=== PATIENT | male | born 1960 | race Caucasian/White ===

== ENCOUNTER 2020-06-10 17:13 | Emergency (ER) | payer BC ==
[~2020-06-10] VITALS: Ht 160 cm; Wt 68.0 kg
[2020-06-10 17:51] VITALS: BP 154/73
[2020-06-10] MEDS ORDERED: HYDROcodone/APAP 5/325MG 1 TAB TABLET PO ONE (18:15)
--- NOTE | 2020-06-10 18:26 | PHYS DOC ---
Past Medical History Past Medical History: Anxiety (ISA CORDERO APRN) Past Surgical History: Cholecystectomy (ISA CORDERO APRN) Smoking Status: Never Smoker Alcohol Use: Occasionally (ISA CORDERO APRN) General Adult EDM: Chief Complaint: RIB PAIN HPI: HPI: Patient is a 59 year old male who presents with was working on a car when he slipped and he fell hitting his Right ribs on the alexys. He rates his throbbing, aching pain 8 out of 10. Patient does have a circular area where he hit the alexys on his lateral ribs. Patient states he has shortness of breath due to pain. He states when he takes a deep breath or with movement it hurts worse. There is no crepitus or deformity or bruising over the area. There is tenderness. Patient denies taking any medication prior to coming. He denies hi tting his head, headache, dizziness, abdominal pain, nausea, vomiting, diarrhea, chest pain, blood thinners, back pain, neck pain, vision changes. (ISA CORDERO HALL DIRECTOR) Review of Systems: Review of Systems: Constitutional: Denies fever or chills. [] Eyes: Denies change in visual acuity. [] HENT: Denies nasal congestion or sore throat. [] Respiratory: Denies cough. +shortness of breath. [] Cardiovascular: Denies chest pain or edema. [] GI: Denies abdominal pain, nausea, vomiting, bloody stools or diarrhea. [] : Denies dysuria. [] Musculoskeletal: Denies back pain or joint pain. +Left ribs. [] Integument: Denies rash. +[place] around circular area to the left lateral ribs where he landed on the cardiac. [] Neurologic: Denies headache, focal weakness or sensory changes. [] Endocrine: Denies polyuria or polydipsia. [] Lymphatic: Denies swollen glands. [] Psychiatric: Denies depression or anxiety. [] (ISA CORDERO APRN) Heart Score: Risk Factors: Risk Factors: DM, Current or recent (<one month) smoker, HTN, HLP, family history of CAD, obesity. Risk Scores: Score 0 - 3: 2.5% MACE over next 6 weeks - Discharge Home Score 4 - 6: 20.3% MACE over next 6 weeks - Admit for Clinical Observation Score 7 - 10: 72.7% MACE over next 6 weeks - Early Invasive Strategies (ISA CORDERO APRN) Current Medications: Current Medications Medications (Trade) Dose Ordered Sig/Danie Start Time Stop Time Status Last Admin Dose Admin Acetaminophen/ Hydrocodone Bitart (Lortab 5/325) 1 tab 1X ONCE 06/10/20 18:15 06/10/20 18:16 DC 06/10/20 18:18 1 TAB (ISA CORDERO APRN) Allergies: Allergies: Allergies Coded Allergies Type Severity Reaction Last Updated Verified No Known Drug Allergies 06/10/20 No (ISA CORDERO APRN) Physical Exam: PE: Constitutional: Well developed, well nourished, no acute distress, non-toxic appearance. [] HENT: Normocephalic, atraumatic, bilateral external ears normal, oropharynx moist, no oral exudates, nose normal. [] Eyes: PERRLA, EOMI, conjunctiva normal, no discharge. [] Neck: Normal range of motion, no tenderness, supple, no stridor. [] Cardiovascular:Heart rate regular rhythm, no murmur [] Lungs & Thorax: Bilateral upper breath sounds clear lower diminished to auscultation. Tenderness to the left lateral ribs. [] Abdomen: Bowel sounds normal, soft, no tenderness, no masses, no pulsatile masses. [] Skin: Warm, dry, no erythema, no rash. [place] circular round area to the left lateral ribs. [] Back: No tenderness, no CVA tenderness. [] Extremities: No tenderness, no cyanosis, no clubbing, ROM intact, no edema. [] Neurologic: Alert and oriented X 3, normal motor function, normal sensory function, no focal deficits noted. [] Psychologic: Affect normal, judgement normal, mood normal. [] (ISA CORDERO APRN) Current Patient Data: Vital Signs: Vital Signs Date Time Temp Pulse Resp B/P (MAP) Pulse Ox O2 Delivery O2 Flow Rate FiO2 06/10/20 18:18 20 06/10/20 17:51 98.2 72 154/73 (100) 95 Room Air 98.2 (ISA CORDERO APRN) EKG: EKG: [] (ISA CORDERO APRN) Radiology/Procedures: Radiology/Procedures: [] Impression: [facility] [address] [place] [address] IMAGING REPORT Signed PATIENT: CONSUELO MEEK ACCOUNT: [id number] : 1960 LOCATION: ER AGE: 59 SEX: M EXAM STATUS: REG ER ORD. PHYSICIAN: ISA CORDERO APRN REASON: fell on alexys, left rib pain PROCEDURE: RIBS RIGHT AND PA CHEST Exam: Right RIBS with PA chest INDICATION: Fall, rib pain TECHNIQUE: Frontal view of the chest with oblique and frontal views of the right ribs. Comparisons: None FINDINGS: The cardiomediastinal silhouette and pulmonary vessels are within normal limits. The lung and pleural spaces are clear. Mildly displaced right lateral ninth rib. IMPRESSION: Mildly displaced right lateral ninth rib. No pneumothorax. Electronically signed by: Mahsa Rodrigues MD (06/10/2020 6:41 PM) [facility] DICTATED and SIGNED BY: MAHSA RODRIGUES MD DATE: 06/10/201840 (ISA CORDERO APRN) Course & Med Decision Making: Course & Med Decision Making Pertinent Labs and Imaging studies reviewed. (See chart for details) See HPI. Ambulatory with a steady gait. Alert and oriented x4. Speaks in full complete sentences. Vital signs within normal limits. He has a history of anxiety and cholecystectomy. I have ordered a incentive spirometer to be given to the patient and education by nurse. Patient is given [place] in the ED. lungs are clear to auscultation upper lobes but diminished in lower lobes. [] (ISA CORDERO APRN) Course & Med Decision Making I have reviewed the PA/PARAKEET RAISER's note and Plan of Care. I was available for consultation as needed during the patient's visit in the emergency department. I agree with the clinical impression, plans and disposition. (HUMBERTO BOO MD) Dragon Disclaimer: Dragon Disclaimer: This electronic medical record was generated, in whole or in part, using a voice recognition dictation system. (BAFUS,ISA M HALL DIRECTOR) Departure Departure Impression: Primary Impression: Rib fracture Qualified Codes: S22.31XA - Fracture of one rib, right side, initial encounter for closed fracture Disposition: HOME, SELF-CARE Condition: STABLE Referrals: MAYA ORDAZ DO (PCP) DINH ZHANG II, MD Patient Instructions: Incentive Spirometer, Rib Fracture Additional Instructions: Follow-up with primary care or your orthopedic doctor I have referred you to. Take medication as prescribed and with food. Do not drive or drink on this medication due to it making you tired. Do not wrap anything around your rib cage as this further stop you from taking a deep breath. There was always the risk of pneumonia with rib fractures due to the pain with movement. Use incentive spirometer as educated. If you begin having severe shortness of breath or chest pain return to the emergency room Scripts Hydrocodone/Apap 5-325 (NORCO 5-325 TABLET) 1 Each Tablet 1 TAB PO PRN Q6HRS PRN for PAIN, #10 TAB 0 Refills Prov: ISA CORDERO APRN 06/10/20 Ibuprofen (IBUPROFEN) 600 Mg Tablet 600 MG PO PRN Q6HRS PRN for INFLAMMATION, #20 TAB Prov: ISA CORDERO APRN 06/10/20 ISA CORDERO APRN Jun 10, 2020 18:26 HUMBERTO BOO MD Jun 10, 2020 19:13
--- NOTE | 2020-06-10 18:44 | RAD ---
Exam: Right RIBS with PA chest INDICATION: Fall, rib pain TECHNIQUE: Frontal view of the chest with oblique and frontal views of the right ribs. Comparisons: None FINDINGS: The cardiomediastinal silhouette and pulmonary vessels are within normal limits. The lung and pleural spaces are clear. Mildly displaced right lateral ninth rib. IMPRESSION: Mildly displaced right lateral ninth rib. No pneumothorax. Electronically signed by: Mahsa Willoughby MD (06/10/2020 6:41 PM) ANA MARÍA
[2020-06-10] MEDS ORDERED: IBUP-1007 PO (18:48)
[2020-06-10] MEDS ORDERED: HYDR-3164 PO (18:48)
== END 2020-06-10 18:54 | disposition home or self-care (01) ==
LOC: ER 17:13
DX: S22.31XA Fracture of one rib, right side, initial encounter for closed fracture (principal); W01.198A Fall on same level from slipping, tripping and stumbling with subsequent striking against other object, initial encounter; Y93.89 Activity, other specified; Y92.69 Other specified industrial and construction area as the place of occurrence of the external cause; Y99.0 Civilian activity done for income or pay
CPT/HCPCS: 71101; 99284